=== PATIENT | male | born 1950 | race Caucasian/White ===

== ENCOUNTER → 2017-09-11 | Day surgery (SDC) | payer OTHER, MEDICARE ==
[~2017-09-11] MED LIST: ATENOLOL 100MG100 MG PO; CELEBREX 200 M200 M1 PO; HYDROCODONE-AP1 EAC6 PO; NORVASC5 MG PO; PROTONIX40 M1 PO
[2017-09-11 06:29] LABS: HEMATOCRIT 40.1 % (42.0-52.0); MCH 26.7 pg (26.0-34.0); MCHC 32.4 g/dL (28.0-37.0); MCV 82.3 fL (80.0-100.0); MPV 9.2 fl. (7.2-11.1); RBC 4.87 mil/uL (4.50-6.00); RDW-CV 16.6 % (10.5-14.5); WBC 7.6 thou/uL (4.0-11.0)
[2017-09-11 06:51] LABS: ALBUMIN 3.6 g/dL (3.4-5.0); CALCIUM 9.2 mg/dL (8.5-10.1); TOTAL BILIRUBIN 0.5 mg/dL (<0.1-1.0); TOTAL PROTEIN 8.2 g/dL (6.4-8.2)
--- NOTE | 2017-09-11 10:22 | EKG ---
[place] [address] ELECTROCARDIOGRAM REPORT Name: NOE RICKS JR Room: [facility]#: [id number] Admission: 09/11/17 Attend Phys: Reg Godwin Discharge: Date of : 54 Report #: [id number] THIS REPORT FOR: //name// [facility] Test Date: 2017-09-11 Test Time: 06:32:17 Pat Name: NOE RICKS Department: Room: Gender: M Medical Laboratory Technical Officer: [facility] : 1950 Requested By: Reg Godwin Order Number: [id number] Dawood MD: Femi Shafer Measurements Intervals [place] Rate: 54 P: 17 WI: 170 QRS: 11 QRSD: 94 T: 19 QT: 447 QTc: 416 Interpretive Statements Sinus bradycardia Abnormal R-wave progression, early transition Minimal ST elevation, anterior leads No previous ECG available for comparison Electronically Signed On 09-11-2017 10:21:49 CDT by Femi Shafer [email or web address] <ELECTRONICALLY SIGNED> By: Femi Shafer MD, [facility] 09/11/17 1021 0632 0632 Femi Shafer MD, FACC /EPI
--- NOTE | 2017-09-17 09:54 | PROC ---
[facility] [address] [place] [address] PROCEDURE REPORT Name: NOE RICKS JR Room: [facility]#: [id number] Admission: 09/11/17 Attend Phys: Reg Godwin Discharge: Date of : 54 Report #: [id number] THIS REPORT FOR: //name// CC: Reg Loyola DATE OF SERVICE: 09/11/2017 PREOPERATIVE DIAGNOSIS: Incarcerated ventral incisional hernia. POSTOPERATIVE DIAGNOSIS: Incarcerated ventral incisional hernia. PROCEDURE: Laparoscopic repair of incarcerated ventral incisional hernia with mesh. SURGEON: Reg Godwin M.D. ANESTHESIA: General. ESTIMATED BLOOD LOSS: Minimal. SPECIMEN: None. DESCRIPTION OF PROCEDURE: After informed consent was obtained, the patient was brought to the operating room and placed supine. SCDs were placed and working. Preoperative antibiotics were administered, general anesthesia was induced. The abdomen was prepped and draped in the usual sterile fashion. A 5-mm incision was made in the right upper quadrant. A 5-mm trocar was placed under direct vision. Pneumoperitoneum was established. Left-sided 5 mm ports were placed. They were two. I then placed an 11-mm right-sided port and a right lower quadrant 5-mm port. He had incarcerated omentum and small bowel. There were two defects. The bowel was carefully reduced, taking care not to injure the bowel. 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 These measured approximately 4 x 4 cm. Total area was approximately 18 cm. I therefore inserted a 25 x 20 Bard Ventralight mesh. This was an ECHO type mesh. It was brought out through the anterior abdominal wall and was tacked with 60 absorbable tacks. The defects were covered widely. I then placed four transfascial Ethibond sutures using the suture passer for transfascial fixation. The ports were then removed under direct vision. The skin was closed with 4-0 Monocryl. Incisions were sealed with Dermabond. COMPLICATIONS: [place] [address] PROCEDURE REPORT Name: NOE RICKS JR Room: [facility]#: [id number] Admission: 09/11/17 Attend Phys: Reg Godwin Discharge: Date of : 54 Report #: [id number] DISPOSITION: The patient was taken to recovery in satisfactory condition. <ELECTRONICALLY SIGNED> By: Reg Godwin MD 09/17/17 0954 [id number] [id number] Godwin MD /nt
== END | disposition home or self-care (01) ==
LOC: M.SUR 06:06
PROVIDERS: Surgery
DX: K43.0 Incisional hernia with obstruction, without gangrene (principal); I10 Essential (primary) hypertension; Z79.899 Other long term (current) drug therapy; Z79.891 Long term (current) use of opiate analgesic